=== PATIENT | male | born 1955 ===

== ENCOUNTER 2024-11-07 12:04 | Outpatient (AMB) | payer MEDICARE, OTHER, SELFPAY ==
--- NOTE | 2024-11-07 12:30 | MHC.OFFWIV ---
Intake Vital Signs 11/07/24 12:31 Height 5 ft 11 in Weight 178 lb BMI 24.8 BP 128/72 Blood Pressure Location Rt brachial Position Sitting Pulse 70 Pulse Source Pulse Oximeter Temp 97.9 F Temp Source Oral Pulse Oximetry (%) 97 Oxygen Delivery Method Room Air Intake Visit Reasons: [employer]ER cellulitis on lt elbow? Intake Note: presents with left elbow swelling, redness, warm to touch Allergies KAMI Inhibitors Allergy (Severe, Verified 11/07/24 12:33) cough, dyspnea Do you need a note to return to daycare/school/sports/work: No HPI HPI Comments History of Present Illness Details 69 y/o Male patient who presents to the walk in clinic with c/o Redness, swelling and tenderness left elbow. This past weekend he went [place] [facility], where he was bitten by unknown Bug. He noticed swelling and warmth on the back of left Elbow. Denies Fevers, chills, nausea or vomiting. [facility] Medical History (Updated 11/07/24 @ 12:58 by Valeria Herron NP) Cellulitis of elbow Review of Systems Const All systems reviewed & are unremarkable except as noted in HPI and below Physical Exam Vital Signs: Last Vital Signs Temp 97.9 F 11/07/24 12:31 Pulse 70 11/07/24 12:31 BP 128/72 11/07/24 12:31 Pulse Ox 97 11/07/24 12:31 Oxygen Delivery Method Room Air 11/07/24 12:31 BMI result Body Mass Index 24.8 Skin Other: Left posterior Elbow: Poorly demarcated, warm erythematous area with associated swelling and tenderness to palpation. Extrem Right upper extremity: normal to inspection and full ROM Left upper extremity: elbow/forearm Details: abnormal to inspection Details: erythema and olecranon swelling, tenderness, normal ROM and warmth Location: of the olecranon bursa; no crepitus Elbow/forearm/wrist images:  1. Poorly demarcated, warm erythematous area with associated swelling and tenderness to palpation. Assessment & Plan Assessment & Plan (1) Cellulitis of elbow: Code(s): L03.119 - Cellulitis of unspecified part of limb Plan: Ordered Doxy for 10 days. Acetaminophen or NSAIDs for pain relief. Medications: New doxycycline hyclate 100 mg PO BID 20 caps 0RF 10 days L03.119 - Cellulitis of unspecified part of limb Coding Level of Care Code New Pt Level 4 (64442) Diagnoses Cellulitis of elbow L03.119 Time Spent (min) 20
[2024-11-07 12:31] VITALS: BP 128/72; PULSE 70; TEMP 36.6; O2SAT 97; BMI 24.8
--- OUTSIDE RECORDS SUMMARY | 2024-11-07 13:01 | XMS_ITS | Encounter Summary ---
Author Organization [facility] Address [address] [place] [address] Care Team Providers Care Home Health Lvn Name Role Phone Trudy Ron MD, Eduardo Ramos Primary Care Provid er Reason for Visit * Reason Comments Medication Refill Encounter Details Date Type Department Care Team (Late Contact Info) Description 02/03/2024 Refill [facility] [address] [facility] [place] [address] Vilma Branch, [employer]PECTOR [address] [facility] [place] [address] Chronic obstructive pulmonary disease, unspecified COPD type; Type 2 diabetes mellitus with other specified complication, without long-term current use of insulin (HCC); Essential hypertension; Vitamin D deficiency; Mixed hyperlipidemia; Hehzm-[id number] deficiency Social History Tobacco Use Types Packs/Day Years Used Date Smoking Tobacco: Never Smokeless Tobacco: Never Alcohol Use Standard Drinks/Week Comments Not Currently 0 (1 standard drink = 0.6 oz pur e alcohol) Sex and Gender Information Value Date Recorded Sex Assigned at Not on file Legal Sex Male 10:09 AM CDT Gender Identity Not on file Sexual Orientation Not on file documented as of this encounter Plan of Treatment Upcoming Encounters Date Type Department Care Team (Late Contact Info) Description 12/18/2024 1:10 PM CDT Office Visit [facility] [id number] [facility] [place] [address] Kesha Lynn MD [facility] [place] [address], [place] [id number] 12/23/2024 2:30 PM CDT Office Visit [facility] [address] [place] [address] Eduardo Yates Jr., MD [address] [place] [address] 12/24/2024 11:40 AM CDT Office Visit [facility] [address] [place] [address] Ree Lanier MD [address] [place] [address] documented as of this encounter Visit Diagnoses Diagnosis Chronic obstructive pulmonary disease, unspecified COPD type Type 2 diabetes mellitus with other specified complication, without long-term current use of insulin (HCC) Essential hypertension Unspecified essential hypertension Vitamin D deficiency Mixed hyperlipidemia Xufbu-[id number] deficiency documented in this encounter Additional Health Concerns Assessment Noted Time PHQ-9 Depression Total Score: 3 12/19/19 24 3:46 PM CDT documented as of this encounter Care Teams Home Health Lvn Relationship Specialty Start Date End Date Eduardo Yates Jr., MD [address] [place] [place] [address] PCP - General Internal Medicine 04/16/19 documented as of this encounter
== END 2024-11-07 13:22 | disposition home or self-care (01) ==
PROVIDERS: Visit Provider Nurse Practitioner Family
DX: L03.119 Cellulitis of unspecified part of limb (principal)

== ENCOUNTER → 2024-11-07 12:04 | Outpatient (BNVA) | payer MEDICARE, OTHER, SELFPAY | PROVIDERS: Visit Provider Nurse Practitioner Family | DX: L03.114 Cellulitis of left upper limb (principal) | CPT/HCPCS: 99202 ==